=== PATIENT | female | born 1975 | race Caucasian/White ===

== ENCOUNTER 2018-06-17 12:33 | Emergency (ER) | payer OTHER ==
[~2018-06-17] VITALS: Ht 162.6 cm; Wt 55.0 kg
[2018-06-17 12:37] VITALS: BP 129/91
[2018-06-17] MEDS ORDERED: OXYcodone/APAP 5/325MG TABLET ONE (12:50)
[2018-06-17] MEDS ORDERED: OXYcodone/APAP 5/325MG TABLET PO ONE (13:00)
== END 2018-06-17 13:47 | disposition home or self-care (01) ==
LOC: ED 13:41
DX: S22.32XA Fracture of one rib, left side, initial encounter for closed fracture (principal); W18.2XXA Fall in (into) shower or empty bathtub, initial encounter; Y93.E1 Activity, personal bathing and showering; Y92.89 Other specified places as the place of occurrence of the external cause; Y99.8 Other external cause status
CPT/HCPCS: 99283